=== PATIENT | male | born 1960 | race Caucasian/White ===

== ENCOUNTER 2017-02-08 01:11 | Observation (INO) ==
[2017-02-08] MEDS ORDERED: 0.9 % Sodium Chloride 1,000 ML IVC ONE ×2 (01:22→02:14)
--- NOTE | 2017-02-08 01:24 | Emergency Department Note ---
Disposition Clinical Impression: Syncope, COPD (chronic obstructive pulmonary disease), Hyponatremia, Hypokalemia Disposition: Admitted As Inpatient Condition: Good Referrals: Fabien Bearden DO [Primary Care Provider] - Forms: ED Satisfaction Letter Time of Disposition: 04:18 Dizziness HPI - General Chief Complaint: ED Dizziness Stated Complaint: Dizziness with fall onset 45 minutes ago Time Seen by Provider: 02/08/17 01:20 Source: patient Mode of arrival: ambulatory Limitations: no limitations Nursing Notes Reviewed: Yes Vital Signs Reviewed: Yes - History of Present Illness HPI Narrative: Patient states ambulating in the hallway at his house after going to the bathroom felt lightheaded and dizzy and collapsed he said he got up got down the hallway a few more steps and then did begin at which point he called the squad he states he feels loopy lightheaded dizzy feelings of passout denies chest pain chest prescribed patient has a history of PE unable take Xaralto because they think he had an allergic reaction to she denies fever chills cough cold flulike symptoms states the last time this happened to him he had an underlying pneumonia he denies numbness tingling with this Pain swelling and edema rashes or lesions Pt Subjective Complaint: dizziness Onset (ago): Just [employer] ENGINE[employer] Timing: sudden onset Description: lightheadedness History of similar episodes: No History of trauma: No Severity: moderate, severe Improves with: nothing Worsens with: movement Associated symptoms: Reports: malaise, shortness of breath, syncope (near), weakness, nausea. Denies: ataxia, chest pain, confusion, diaphoresis, chills, rash, vision changes, vomiting, palpitations - Related Data Home Medications Medication Instructions Recorded Confirmed Albuterol Sulfate [Ventolin Hfa] 1 - 2 puff IH Q4-6H PRN 09/28/15 02/08/17 Aspirin 81 mg PO DAILY 09/28/15 02/08/17 Enalapril Maleate [Vasotec] 5 mg PO DAILY 09/28/15 02/08/17 Fluticasone Propionate [Flovent 2 puff IH BID 09/28/15 02/08/17 Hfa] Ipratropium/Albuterol Neb [Duoneb] 3 ml IH QID 09/28/15 02/08/17 Omeprazole [PriLOSEC] 20 mg PO DAILY 09/28/15 02/08/17 Triamterene/HCTZ 37.5/25mg 1 tab PO DAILY 09/28/15 02/08/17 [Dyazide] Tiotropium [Spiriva] 2 puff IH BID 02/14/16 02/08/17 Allergies Allergy/AdvReac Type Severity Reaction Status Date / Time rivaroxaban [From Xarelto] AdvReac bleeding Verified 09/28/15 17:30 All systems ED: reviewed and negative except as stated. Review of Systems: As Per HPI Constitutional: Denies: fever Eyes: Denies: eye pain ENT ED: Denies: ear pain Cardiovascular: Reports: syncope. Denies: chest pain, palpitations Respiratory: Reports: dyspnea, wheezes Gastrointestinal: Denies: abdominal pain Genitourinary: Denies: urgency Musculoskeletal: Denies: back pain Integumentary: Denies: abrasion Neurological: Denies: headache Psychiatric: Denies: anxiety Endocrine: Denies: fatigue Hematological/Lymphatic: Denies: easy bleeding Allergic/Immunologic: Denies: facial swelling Past Medical History - Past Medical History Attestation: Yes The following information was validated with the patient. Source: patient, old records reviewed, nursing notes reviewed Medical history: Reports: COPD, DVT, hypertension, other (with PE) Psychiatric history: Reports: no psych history - Social History Smoking Status: Current every day smoker Smokeless Tobacco Status: No Alcohol use: Reports: occasionally Drug use: Reports: none Physical Exam - General Limitations: no limitations General appearance: alert, in no apparent distress, appears intoxicated, cachectic, other (odor similar to nicotine and etoh type product) - Head Head exam: atraumatic, normocephalic, normal inspection - Eye Eye exam: Present: normal appearance, PERRL, EOMI - ENT ENT exam: normal exam, normal oropharynx, mucous membranes moist, normal external ear exam - Neck Neck exam: Present: normal inspection, full ROM, trachea midline - Chest Chest inspection: Present: normal inspection, symmetric chest wall rise - Respiratory Respiratory exam: Present: normal lung sounds bilaterally, wheezes - Cardiovascular Cardiovascular exam: Present: regular rate, normal rhythm, normal heart sounds - Abdominal Exam Abdominal exam: Present: soft, Non-Tender, normal bowel sounds. Absent: mass, pulsatile mass - Extremities Exam Extremities exam: Present: normal inspection, full ROM, normal capillary refill. Absent: tenderness, joint swelling - Expanded Lower Extremity Exam Neurovascular/Tendon exam: Present: normal capillary refill, normal fine/light touch Gait: not tested/not observed - Back Exam Back exam: Present: normal inspection, full ROM. Absent: muscle spasm - Neurological Exam Neurological exam: Present: alert, oriented X3, CN II-XII intact, normal gait - Psychiatric Psychiatric exam: Present: normal affect, normal mood - Skin Skin exam: Present: warm, dry, intact, normal color Course Course Narrative: Patient seen and examined given a fluid bolus awaiting laboratory results - Reevaluation(s) Reevaluation #1: Laboratory results back noted to have a large light disturbance. Secondary to his alcohol patient will be admitted for observation transferred to [facility] repeat lactic level will be done on the pt and serial enzymes Vital Signs Temperature 98.1 F 02/08/17 01:17 Pulse Rate 83 02/08/17 01:17 Respiratory Rate 20 02/08/17 01:17 Blood Pressure 93/75 02/08/17 01:17 O2 Sat by Pulse Oximetry 100 02/08/17 01:17 Temperature 97.8 F 02/08/17 04:01 Pulse Rate 78 02/08/17 04:01 Respiratory Rate 16 02/08/17 04:01 Blood Pressure 113/75 02/08/17 04:01 O2 Sat by Pulse Oximetry 100 02/08/17 04:01 Oxygen Delivery Oxygen Delivery Room Air Dizziness - Differential Diagnosis Likely: adverse reaction to drug, vertebral basilar insufficiency, cerebrovascular accident, transient cerebral ischemia - Medical Records Medical records reviewed: Yes I reviewed the patient's medical records. - Lab Data Lab results reviewed: Yes I reviewed the patient's lab results. Result diagrams: 02/08/17 01:42 02/08/17 01:42 Lab Results 02/08/17 02/08/17 02/08/17 Range/Units 01:42 01:42 01:42 WBC 10.0 (4.3-11.1) K/mcL RBC 4.58 (4.19-5.50) M/mcL Hgb 14.5 (12.9-16.9) g/dL Hct 38.8 (37.5-50.1) % MCV 84.7 (83.0-100.0) fL MCH 31.7 (28.0-33.3) pg MCHC 37.4 H (31.6-35.5) g/dL RDW 11.7 (11.5-14.5) % Plt Count 191 (140-400) K/mcL MPV 9.5 (9.4-12.4) fL Immature Gran % 0.4 (0-4) % Seg Neutrophils % 85.0 % Lymphocytes % 7.8 % Monocytes % 6.5 % Eosinophils % 0.2 % Basophils % 0.1 % Neutrophils # 8.5 (1.6-8.9) K/mcL Lymphocytes # 0.8 (0.6-4.6) K/mcL Monocytes # 0.7 (0.0-1.3) K/mcL Eosinophils # 0.0 (0.0-0.6) K/mcL Basophils # 0.0 (0.0-0.2) K/mcL PT (9.4-12.1) Seconds INR APTT 25.8 L (26.0-36.0) Seconds D-Dimer (0-500) ng/mLFEU VBG Lactic Acid (0.5-2.2) mmol/L Sodium (136-145) mEq/L Potassium (3.5-4.5) mEq/L Chloride (98-109) mEq/L Carbon Dioxide (19-29) mEq/L BUN (8-26) mg/dL Creatinine (0.72-1.25) mg/dL Est GFR ( Amer) (> 60) Est GFR (Non-Af Amer) (> 60) BUN/Creatinine Ratio (6-26) Glucose (70-99) mg/dL Calculated Osmolality (280-300) Calcium (8.6-10.8) mg/dL Total Bilirubin (0.2-1.2) mg/dL AST (5-34) Units/L ALT (0-55) Units/L Alkaline Phosphatase (38-126) Units/L Troponin I (0-0.03) ng/mL B-Natriuretic Peptide 53 (0-100) pg/mL Serum Total Protein (6.0-8.3) g/dL Albumin (3.5-5.0) g/dL Globulin (2.4-3.5) g/dL Albumin/Globulin Ratio (1.1-2.2) TSH (0.350-4.840) mcIU/mL Urine Color (Yellow) Urine Clarity (Clear) Urine pH (5.0-8.0) pH Units Ur Specific Ross (1.010-1.025) Urine Protein (Neg-Trace) mg/dL Urine Glucose (UA) (Normal) mg/dL Urine Ketones (Negative) mg/dL Urine Blood (Negative) Urine Nitrite (Negative) Urine Bilirubin (Negative) Urine Urobilinogen (Normal) mg/dL Ur Leukocyte Esterase (Negative) Ur Culture Indicated? (NO) Urine Opiates Screen (Nqmxqd=080) ng/mL Ur Oxycodone Screen (Cutoff= 100) ng/mL Ur Barbiturates Screen (Orzdwt=694) ng/mL Ur Phencyclidine Scrn (Cutoff=25) ng/mL Ur Amphetamines Screen (Hnwpeq=7653) ng/mL U Benzodiazepines Scrn (Fwdsmt=260) ng/mL Urine Cocaine Screen (Cutoff= 300) ng/mL U Marijuana (THC) Screen (Cutoff = 50) ng/mL Ethyl Alcohol (0-10) mg/dL 02/08/17 02/08/17 02/08/17 Range/Units 01:42 01:42 01:42 WBC (4.3-11.1) K/mcL RBC (4.19-5.50) M/mcL Hgb (12.9-16.9) g/dL Hct (37.5-50.1) % MCV (83.0-100.0) fL MCH (28.0-33.3) pg MCHC (31.6-35.5) g/dL RDW (11.5-14.5) % Plt Count (140-400) K/mcL MPV (9.4-12.4) fL Immature Gran % (0-4) % Seg Neutrophils % % Lymphocytes % % Monocytes % % Eosinophils % % Basophils % % Neutrophils # (1.6-8.9) K/mcL Lymphocytes # (0.6-4.6) K/mcL Monocytes # (0.0-1.3) K/mcL Eosinophils # (0.0-0.6) K/mcL Basophils # (0.0-0.2) K/mcL PT 10.3 (9.4-12.1) Seconds INR 1.0 APTT (26.0-36.0) Seconds D-Dimer 1716 H (0-500) ng/mLFEU VBG Lactic Acid (0.5-2.2) mmol/L Sodium 124 L (136-145) mEq/L Potassium 2.9 L (3.5-4.5) mEq/L Chloride 89 L (98-109) mEq/L Carbon Dioxide 21 (19-29) mEq/L BUN 6 L (8-26) mg/dL Creatinine 0.70 L (0.72-1.25) mg/dL Est GFR ( Amer) > 60 (> 60) Est GFR (Non-Af Amer) > 60 (> 60) BUN/Creatinine Ratio 9 (6-26) Glucose 86 (70-99) mg/dL Calculated Osmolality 255 L (280-300) Calcium 8.4 L (8.6-10.8) mg/dL Total Bilirubin 0.7 (0.2-1.2) mg/dL AST 31 (5-34) Units/L ALT 27 (0-55) Units/L Alkaline Phosphatase 66 (38-126) Units/L Troponin I 0.00 (0-0.03) ng/mL B-Natriuretic Peptide (0-100) pg/mL Serum Total Protein 5.8 L (6.0-8.3) g/dL Albumin 3.0 L (3.5-5.0) g/dL Globulin 2.8 (2.4-3.5) g/dL Albumin/Globulin Ratio 1.1 (1.1-2.2) TSH 1.968 (0.350-4.840) mcIU/mL Urine Color (Yellow) Urine Clarity (Clear) Urine pH (5.0-8.0) pH Units Ur Specific Ross (1.010-1.025) Urine Protein (Neg-Trace) mg/dL Urine Glucose (UA) (Normal) mg/dL Urine Ketones (Negative) mg/dL Urine Blood (Negative) Urine Nitrite (Negative) Urine Bilirubin (Negative) Urine Urobilinogen (Normal) mg/dL Ur Leukocyte Esterase (Negative) Ur Culture Indicated? (NO) Urine Opiates Screen (Wnfurt=703) ng/mL Ur Oxycodone Screen (Cutoff= 100) ng/mL Ur Barbiturates Screen (Vdwznb=207) ng/mL Ur Phencyclidine Scrn (Cutoff=25) ng/mL Ur Amphetamines Screen (Amuwwg=9797) ng/mL U Benzodiazepines Scrn (Xutvhq=623) ng/mL Urine Cocaine Screen (Cutoff= 300) ng/mL U Marijuana (THC) Screen (Cutoff = 50) ng/mL Ethyl Alcohol 99 H (0-10) mg/dL 02/08/17 02/08/17 02/08/17 Range/Units 01:42 02:31 02:31 WBC (4.3-11.1) K/mcL RBC (4.19-5.50) M/mcL Hgb (12.9-16.9) g/dL Hct (37.5-50.1) % MCV (83.0-100.0) fL MCH (28.0-33.3) pg MCHC (31.6-35.5) g/dL RDW (11.5-14.5) % Plt Count (140-400) K/mcL MPV (9.4-12.4) fL Immature Gran % (0-4) % Seg Neutrophils % % Lymphocytes % % Monocytes % % Eosinophils % % Basophils % % Neutrophils # (1.6-8.9) K/mcL Lymphocytes # (0.6-4.6) K/mcL Monocytes # (0.0-1.3) K/mcL Eosinophils # (0.0-0.6) K/mcL Basophils # (0.0-0.2) K/mcL PT (9.4-12.1) Seconds INR APTT (26.0-36.0) Seconds D-Dimer (0-500) ng/mLFEU VBG Lactic Acid 2.9 H (0.5-2.2) mmol/L Sodium (136-145) mEq/L Potassium (3.5-4.5) mEq/L Chloride (98-109) mEq/L Carbon Dioxide (19-29) mEq/L BUN (8-26) mg/dL Creatinine (0.72-1.25) mg/dL Est GFR ( Amer) (> 60) Est GFR (Non-Af Amer) (> 60) BUN/Creatinine Ratio (6-26) Glucose (70-99) mg/dL Calculated Osmolality (280-300) Calcium (8.6-10.8) mg/dL Total Bilirubin (0.2-1.2) mg/dL AST (5-34) Units/L ALT (0-55) Units/L Alkaline Phosphatase (38-126) Units/L Troponin I (0-0.03) ng/mL B-Natriuretic Peptide (0-100) pg/mL Serum Total Protein (6.0-8.3) g/dL Albumin (3.5-5.0) g/dL Globulin (2.4-3.5) g/dL Albumin/Globulin Ratio (1.1-2.2) TSH (0.350-4.840) mcIU/mL Urine Color Yellow (Yellow) Urine Clarity Clear (Clear) Urine pH 6.5 (5.0-8.0) pH Units Ur Specific Ross 1.015 (1.010-1.025) Urine Protein Negative (Neg-Trace) mg/dL Urine Glucose (UA) Normal (Normal) mg/dL Urine Ketones Negative (Negative) mg/dL Urine Blood Negative (Negative) Urine Nitrite Negative (Negative) Urine Bilirubin Negative (Negative) Urine Urobilinogen Normal (Normal) mg/dL Ur Leukocyte Esterase Negative (Negative) Ur Culture Indicated? NO (NO) Urine Opiates Screen Negative (Bccoxw=075) ng/mL Ur Oxycodone Screen Negative (Cutoff= 100) ng/mL Ur Barbiturates Screen Negative (Tqmerj=034) ng/mL Ur Phencyclidine Scrn Negative (Cutoff=25) ng/mL Ur Amphetamines Screen Negative (Xcwjay=2106) ng/mL U Benzodiazepines Scrn Negative (Syxlua=339) ng/mL Urine Cocaine Screen Negative (Cutoff= 300) ng/mL U Marijuana (THC) Screen Positive H (Cutoff = 50) ng/mL Ethyl Alcohol (0-10) mg/dL - Radiology Data Radiology results reviewed: Yes I reviewed the patient's radiology results. - EKG Data EKG attestation: Yes I reviewed and interpreted this EKG. EKG results narrative: Normal sinus rhythm rate 80 AL 198 QRS 89 QT [address] segment elevation or ischemic or injury pattern Critical Care Time Critical Care Time: No
[2017-02-08 02:14] LABS: Prothrombin Time 10.3 Seconds (9.4-12.1)
[2017-02-08] MEDS ORDERED: 0.9 % Sodium Chloride 500 ML IVC ONE (02:14)
[2017-02-08] MEDS ORDERED: 0.9 % Sodium Chloride 1,000 ML ONE (02:16)
[2017-02-08 02:19] LABS: Alanine Aminotransferase 27 Units/L (0-55); Albumin/Globulin Ratio 1.1 (1.1-2.2); Alkaline Phosphatase 66 Units/L (38-126); Aspartate Amino Transferase 31 Units/L (5-34); BUN/Creatinine Ratio 9 (6-26); Bilirubin,Total 0.7 mg/dL (0.2-1.2); Blood Urea Nitrogen 6 mg/dL (8-26); Calcium 8.4 mg/dL (8.6-10.8); Carbon Dioxide 21 mEq/L (19-29); Chloride 89 mEq/L (98-109); Ethanol 99 mg/dL (0-10); Globulin 2.8 g/dL (2.4-3.5); Glucose 86 mg/dL (70-99); Osmolality,Calculated 255 (280-300); Potassium 2.9 mEq/L (3.5-4.5); Sodium 124 mEq/L (136-145); Total Protein 5.8 g/dL (6.0-8.3); eGFR For African Americans > 60 (> 60); eGFR For Non-African Americans > 60 (> 60)
[2017-02-08 02:24] LABS: Basophils % 0.1 %; Eosinophils % 0.2 %; Hematocrit 38.8 % (37.5-50.1); Hemoglobin 14.5 g/dL (12.9-16.9); Immature Granulocytes % 0.4 % (0-4); Lymphocytes # 0.8 K/mcL (0.6-4.6); Lymphocytes % 7.8 %; Mean Corpuscular HGB Conc 37.4 g/dL (31.6-35.5); Mean Corpuscular Hemoglobin 31.7 pg (28.0-33.3); Mean Corpuscular Volume 84.7 fL (83.0-100.0); Mean Platelet Volume 9.5 fL (9.4-12.4); Monocytes # 0.7 K/mcL (0.0-1.3); Monocytes % 6.5 %; Neutrophils # 8.5 K/mcL (1.6-8.9); Platelet Count 191 K/mcL (140-400); Red Blood Count 4.58 M/mcL (4.19-5.50); Red Cell Distribution Width 11.7 % (11.5-14.5)
[2017-02-08 02:37] LABS: Bilirubin,Urine Negative (Negative); Blood,Urine Negative (Negative); Clarity,Urine Clear (Clear); Color,Urine Yellow (Yellow); Glucose,Urine (UA) Normal (Normal); Ketones,Urine Negative (Negative); Leukocyte Esterase,Urine Negative (Negative); Nitrite,Urine Negative (Negative); PH,Urine 6.5 pH Units (5.0-8.0); Protein,Urine Negative (Neg-Trace); Specific Gravity,Urine 1.015 (1.010-1.025); Urobilinogen,Urine Normal (Normal)
[2017-02-08 02:38] LABS: Thyroid Stimulating Hormone 1.968 mcIU/mL (0.350-4.840)
[2017-02-08 02:51] LABS: Amphetamine Screen,Urine Negative ng/mL (Cutoff=1000); Barbiturate Screen,Urine Negative ng/mL (Cutoff=200); Benzodiazepines Screen,Urine Negative ng/mL (Cutoff=200); Cannabinoid Screen,Urine Positive ng/mL (Cutoff = 50); Cocaine Screen,Urine Negative ng/mL (Cutoff= 300); Opiate Screen,Urine Negative ng/mL (Cutoff=300); Phencyclidine Screen,Urine Negative ng/mL (Cutoff=25)
[2017-02-08] MEDS ORDERED: Ipratropium/Albuterol Neb 3 ML IH SCH ×3 (05:31→12:45)
[2017-02-08] MEDS ORDERED: Albuterol 2.5 MG/3 ML NEBULIZER IH PRN (05:31)
[2017-02-08] MEDS ORDERED: Naloxone 0.4 MG/ML INJ IVP PRN (05:31)
[2017-02-08] MEDS: methylPREDNISolone 125 MG/2 ML VIAL IVP SCH ×2 (06:31→14:28)
[2017-02-08] MEDS ORDERED: Levofloxacin 500 MG/100 ML 500 MG/100 ML BAG IVPB SCH ×2 (09:00→13:00)
[2017-02-08] MEDS ORDERED: Aspirin 81 MG TAB.CHEW PO SCH (09:00)
[2017-02-08] MEDS ORDERED: Tiotropium 18 MCG inhalation IH SCH (09:00)
[2017-02-08 09:33] LABS: Hematocrit 36.5 % (37.5-50.1); Hemoglobin 13.7 g/dL (12.9-16.9); Immature Granulocytes % 0.3 % (0-4); Lymphocytes # 0.3 K/mcL (0.6-4.6); Lymphocytes % 2.9 %; Mean Corpuscular Hemoglobin 31.4 pg (28.0-33.3); Mean Corpuscular Volume 83.7 fL (83.0-100.0); Mean Platelet Volume 9.2 fL (9.4-12.4); Monocytes # 0.1 K/mcL (0.0-1.3); Monocytes % 1.5 %; Neutrophils # 8.2 K/mcL (1.6-8.9); Platelet Count 189 K/mcL (140-400); Red Blood Count 4.36 M/mcL (4.19-5.50); Red Cell Distribution Width 11.7 % (11.5-14.5); Segmented Neutrophils % 95.3 %
[2017-02-08 09:36] LABS: Mean Corpuscular HGB Conc 37.5 g/dL (31.6-35.5)
[2017-02-08 09:46] LABS: BUN/Creatinine Ratio 10 (6-26); Blood Urea Nitrogen 7 mg/dL (8-26); Calcium 8.3 mg/dL (8.6-10.8); Carbon Dioxide 20 mEq/L (19-29); Chloride 97 mEq/L (98-109); Glucose 117 mg/dL (70-99); Osmolality,Calculated 261 (280-300); Potassium 3.9 mEq/L (3.5-4.5); Sodium 126 mEq/L (136-145); eGFR For African Americans > 60 (> 60); eGFR For Non-African Americans > 60 (> 60)
[2017-02-08] MEDS ORDERED: Beclomethasone 80mcg MDI IH SCH (10:00)
[2017-02-08] MEDS ORDERED: Ipratropium/Albuterol Neb 3 ML ONE (12:40)
[2017-02-08] MEDS ORDERED: Nicotine 21 MG PATCH.TD24 TD SCH (14:30)
--- NOTE | 2017-02-08 15:10 | Internal Med History&Physical ---
Date of Encounter: 02/08/17 Time of Encounter: 14:35 Assessment and Plan (1) Syncope Current visit: Yes Status: Acute Suspect due at least in part to hypotension with orthostasis. Dyazide will be held and IV fluids were ordered in emergency room. Further workup will be done as needed. Qualifiers: Syncope type: unspecified Qualified Code(s): R55 - Syncope and collapse (2) Hyponatremia Current visit: Yes Status: Acute Probably secondary to Dyazide use. (3) Hypokalemia Current visit: Yes Status: Acute Probably secondary to Dyazide use. Internal Medicine - H&P: HPI Chief complaint: Syncope with falls Admitted From: Home Plans for Post Hospital Care: Home History of present illness: Mr. To is a 56 year old male who came to emergency room stating he had 2 falls at home just prior to coming to the hospital. The falls were only a few minutes apart and were associated with syncopal episodes. The first one occurred after he had finished urinating and was preparing to leave the bathroom. He felt in the bathroom without significant injury. He stood up and took a few steps but had another episode with falling that he does not remember any details about. His girlfriend was in the house and called the squad. He was brought to emergency room and evaluated. He was found to have significant hyponatremia and hypokalemia. He was admitted to [facility] floor for ongoing care needs. He denies previous syncopal or near-syncopal episodes. He reports he has taken Dyazide for hypertension for several years. He has had hyponatremia on most blood draws since February 2014. He has not had previous hypokalemia. He feels back to his baseline now and wishes to be discharged home. Past Med Surg Social Fam HX - Past Medical History Medical history: COPD, DVT, hypertension, other Psychiatric history: no psych history - Social History Smoking Status: Current every day smoker Smokeless Tobacco Status: No Alcohol use: occasionally Drug use: marijuana - Family History Father Family Member Ethnicity: Non- Living Status: Hx Family Cardiac Disorders: No Hx Family Respiratory Disorders: Yes Hx Family Cancer: Yes Hx Family GI Disorders: No Hx Family Endocrine Disorder: No Hx Family Neuromuscular Disorders: No Hx Family Neurologic Disorders: No Hx Family HEENT Disorders: No Hx Family Autoimmune Disorders: No Internal Medicine - H&P: Meds Albuterol Sulfate [Ventolin Hfa] 1 - 2 puff IH Q4-6H PRN 09/28/15 [History] Aspirin 81 mg PO DAILY 09/28/15 [History] Enalapril Maleate [Vasotec] 5 mg PO DAILY 09/28/15 [History] Fluticasone Propionate [Flovent Hfa] 2 puff IH BID 09/28/15 [History] Ipratropium/Albuterol Neb [Duoneb] 3 ml IH QID 09/28/15 [History] Omeprazole [PriLOSEC] 20 mg PO DAILY 09/28/15 [History] Triamterene/HCTZ 37.5/25mg [Dyazide] 1 tab PO DAILY 09/28/15 [History] Tiotropium [Spiriva] 2 puff IH BID 02/14/16 [History] Allergies rivaroxaban [From Xarelto] Adverse Reaction (Verified 09/28/15 17:30) bleeding All Systems PM: A 10-system review of systems was performed and is negative for pertinent findings except as documented above in the HPI. Review of systems: Gen.: He states his weight has been stable past few months Cardiovascular: He has history of hypertension. He had DVT in 2013 with pulmonary embolism. The DVT was was felt to be due to polycythemia. He denies [place] heart failure or chest pain. He does not recall the date of his most recent exercise stress test but states no further intervention was recommended Respiratory: He has smoked since age 14 up to 1-1/2 packs per day. Has a diagnosis of COPD and has oxygen at home for use at bedtime and when necessary otherwise GI: Denies disorders of his liver gallbladder or exocrine pancreas : Denies hematuria or dysuria or kidney stones Neurologic: Denies large distribution strokes or seizures Endocrine: Denies diabetes thyroid disease or hyperlipidemia Hematology/oncology: He was diagnosed with polycythemia and had several therapeutic phlebotomies. Denies other blood disorders or internal malignancies Psychiatric: He has feelings of depression at times but denies medication use. He does not follow with mental health personnel Musk skeletal: He denies arthritis gout or other bone joint or muscle disorders. - Constitutional Vitals: Temp Pulse Resp BP Pulse Ox 97.9 F 77 16 106/71 95 02/08/17 14:00 02/08/17 14:00 02/08/17 14:00 02/08/17 14:00 02/08/17 14:00 Exam: Gen.: He is a well-developed well-nourished male who appears in no acute distress at present time HEENT: Head is atraumatic and normocephalic. Eyes: EOMI. There is no scleral icterus. Mouth: Mucosa is moist. Neck: Supple and nontender. There is no thyromegaly or adenopathy noted. Heart: Regular without murmurs gallops or ectopics Lungs: No wheezes or crackles are heard. Abdomen: Soft and nontender. No masses or guarding noted. Extremities: There is no cyanosis edema or clubbing noted. Dorsalis pedis and posterior tibial pulses are 1-2 over 2 bilaterally. Neurologic: Mental status: He is talkative and a good historian. Cranial nerves : Smile is symmetric. Forehead wrinkles bilaterally. Tongue protrudes midline. EOMI. Motor: There is no pronator drift. Cerebellar: Finger to nose is intact bilaterally. Skin: Warm and dry Internal Med - H&P Results - Labs CBC & Chem 7: 02/08/17 09:23 02/08/17 09:23 Labs: Short CBC 02/08/17 Range/Units 09:23 WBC 8.6 (4.3-11.1) K/mcL Hgb 13.7 (12.9-16.9) g/dL Hct 36.5 L (37.5-50.1) % Plt Count 189 (140-400) K/mcL Neutrophils # 8.2 (1.6-8.9) K/mcL BMP 02/08/17 09:23 Sodium 126 L Potassium 3.9 D Chloride 97 L Carbon Dioxide 20 BUN 7 L Creatinine 0.71 L Glucose 117 H Calcium 8.3 L Cardiac Enzymes 02/08/17 Range/Units 09:23 Troponin I 0.00 (0-0.03) ng/mL
--- NOTE | 2017-02-08 15:37 | Discharge Summary ---
Date of Encounter: 02/08/17 Time of Encounter: 14:35 - Discharge Diagnosis (1) Syncope Priority: Primary Status: Acute Qualifiers: Syncope type: unspecified Qualified Code(s): R55 - Syncope and collapse (2) Hyponatremia Priority: Secondary Status: Acute (3) Hypokalemia Priority: Secondary Status: Acute - Discharge Medications Home Medications: Albuterol Sulfate [Ventolin Hfa] 1 - 2 puff IH Q4-6H PRN 09/28/15 [History] Aspirin 81 mg PO DAILY 09/28/15 [History] Enalapril Maleate [Vasotec] 5 mg PO DAILY 09/28/15 [History] Fluticasone Propionate [Flovent Hfa] 2 puff IH BID 09/28/15 [History] Ipratropium/Albuterol Neb [Duoneb] 3 ml IH QID 09/28/15 [History] Omeprazole [PriLOSEC] 20 mg PO DAILY 09/28/15 [History] Tiotropium [Spiriva] 2 puff IH BID 02/14/16 [History] Allergies/Adverse Reactions: Allergies rivaroxaban [From Xarelto] Adverse Reaction (Verified 09/28/15 17:30) bleeding Date of admission: 02/08/17 04:38 Primary care physician: Fabien Bearden DO - Patient Status Disposition: Home, Self-Care Condition: Good Functional capacity at discharge: independent ambulation Overall status at discharge: patient is progressing back to baseline - Discharge Instructions Follow Up With: Fabien Bearden DO [Primary Care Provider] - 1 week - Diet and Activity Activity: resume usual activities as tolerated Diet: advance to your usual diet Hospital course: Mr. To is a 56 year old male who came to emergency room stating he had 2 falls at home just prior to coming to the hospital. The falls were only a few minutes apart and were associated with syncopal episodes. The first one occurred after he had finished urinating and was preparing to leave the bathroom. He felt in the bathroom without significant injury. He stood up and took a few steps but had another episode with falling that he does not remember any details about. His girlfriend was in the house and called the squad. He was brought to emergency room and evaluated. He was found to have significant hyponatremia and hypokalemia. He was admitted to [facility] for ongoing care needs. Initial orders were written by the emergency room physician. I saw him the afternoon of February 08 and performed a history physical and discharge. He was given IV fluids and supplement potassium. Potassium was normal 3.9 on a recheck. His sodium had improved to 126. I felt Dyazide should be held and suspected the hyponatremia and hypokalemia would further correct. When I saw him he felt back to his baseline and wished to be discharged home which I felt was reasonable. Orthostatic vital signs will be checked prior to discharge. He will follow with his PCP Dr. Fabien Bearden within 1 week. - Time Spent with Patient Total time spent providing and/or coordinating discharge services: - Constitutional Vitals: Temp Pulse Resp BP Pulse Ox 97.9 F 77 16 106/71 95 02/08/17 14:00 02/08/17 14:00 02/08/17 14:00 02/08/17 14:00 02/08/17 14:00
[2017-02-08 15:53] VITALS: BP 108/72
--- NOTE | 2017-02-08 16:26 | Electrocardiograph Report ---
[address] [address] Test Date: 2017-02-08 Pat Name: John To Department: 9201 Room: [facility] Gender: M Welder Plasma Arc: Jocelin : 1960 Requested By: Gabrielle Costa Order Number: [id number] Reading MD: Pardeep Currie MD Measurements Intervals Moran Rate: 80 P: 80 ID: [id number] QRS: 81 QRSD: 89 T: 69 QT: 367 QTc: 404 Interpretive Statements SINUS RHYTHM Poor R wave progression Electronically Signed On 02-08-2017 16:24:50 EDT by Pardeep Currie MD
[2017-02-09] MEDS ORDERED: Nicotine 21 MG PATCH.TD24 TD SCH (09:00)
== END 2017-02-08 16:10 | disposition home or self-care (01) ==
LOC: EMEROOPIK 01:11 → INPPIK 01:11
PROVIDERS: ADMIT Internal Medicine; ATTEND Internal Medicine